=== PATIENT | female | born 1930 | race Caucasian/White ===

== ENCOUNTER 2017-03-27 14:21 | Emergency (ER) | payer MEDICARE, OTHER ==
[~2017-03-27] VITALS: Ht 154.9 cm; Wt 60.0 kg
[2017-03-27 14:23] VITALS: BP 154/70; PULSE 60; RESP 12; TEMP 98.1; O2SAT 99
--- NOTE | 2017-03-27 14:32 | PD ---
Physical Exam Date Seen by Provider: Mar 27, 2017 Time Seen by Provider: 14:30 Narrative Pt is an 86 y/o female presenting for evaluation of left knee pain after a mechanical fall this morning. Pt denies any dizziness, CP prior to the fall. she is on Eliquis. Pain reported as a 2/10. Swelling to left knee. Awaiting bed placement. Data Data Last Documented VS Vital Signs Date Time Temp Pulse Resp B/P Pulse Ox O2 Delivery O2 Flow Rate FiO2 03/27/17 14:23 98.1 60 12 154/70 99 MDM Supervised Visit with CALISTA: Marce De Jesus Mar 27, 2017 14:32
--- NOTE | 2017-03-27 15:02 | RADRPT ---
EXAM DATE/TIME: 03/27/2017 14:42 [facility] COMPARISON: No previous studies available for comparison. INDICATIONS : Left knee pain. Fall. MEDICAL HISTORY : None. SURGICAL HISTORY : None. ENCOUNTER: Initial ACUITY: 1 day PAIN SCORE: 9/10 LOCATION: Left knee FINDINGS: Four view examination of the left knee demonstrates marked prepatellar soft tissue swelling. Bony str uctures are intact without evidence of acute fracture or dislocation. There is no significant arthrop athy. CONCLUSION: Prepatellar soft tissue swelling and possible hematoma. No evidence of acute fracture or significant arthropathy. Sonny Angeles MD on March 27, 2017 at 14:59 Board Certified Radiologist. This report was verified electronically.
[2017-03-27] MEDS ORDERED: ROSU10 PO (17:23)
[2017-03-27] MEDS ORDERED: APIX5TAB PO (17:23)
[2017-03-27] MEDS ORDERED: CARV3.12 PO (17:23)
--- NOTE | 2017-03-27 17:25 | PD ---
HPI Chief Complaint: Injury Time Seen by Provider: 17:03 Travel History International Travel<30 days: No Contact w/Intl Traveler<30days: No Traveled to known affect area: No History of Present Illness HPI 86yo F with PMH of TIA, afib on eliquis presents to the ED with c/o left knee pain after mechanical fall today. States she was grabbing something from the counter and lose balance and fell on both knees. However, only the left knee is swollen and hurts. Pt denies any dizziness, chest pain, sob, n/v, abdominal pain, focal weakness or numbness. Denies any head trauma. PFSH Past Medical History Hx Anticoagulant Therapy: Yes (ELIQUIS) Social History Tobacco Use: No Allergies-Medications (Allergen,Severity, Reaction): Coded Allergies: Percocet (Verified Adverse Reaction, Severe, Nausea/Vomiting, 03/27/17) Darvon (Verified Adverse Reaction, Unknown, Nausea/Vomiting, 03/27/17) Demerol (Verified Adverse Reaction, Unknown, Nausea/Vomiting, 03/27/17) Latex (Verified Adverse Reaction, Unknown, Rash, 03/27/17) Valium (Verified Adverse Reaction, Unknown, Nausea/Vomiting, 03/27/17) Reported Meds & Prescriptions Reported Meds & Active Scripts Active Tylenol (Acetaminophen) 325 Mg Tab 650 Mg PO Q6H PRN Reported Janumet (Sitagliptin-Metformin) 50-1,000 Mg Tab 1 Tab PO BID Furosemide 20 Mg Tab 20 Mg PO DAILY Carvedilol 3.125 Mg Tab 3.125 Mg PO BID Eliquis (Apixaban) 5 Mg Tab 5 Mg PO BID Crestor (Rosuvastatin Calcium) 10 Mg Tab 10 Mg PO DAILY Review of Systems Except as stated in HPI: all other systems reviewed are Neg Physical Exam Narrative GENERAL: 86yo F not in distress. SKIN: Focused skin assessment warm/dry. HEAD: Atraumatic. Normocephalic. EYES: Pupils equal and round at 3mm bilaterally. EOMI. No scleral icterus. No injection or drainage. ENT: No nasal bleeding or discharge. Mucous membranes pink and moist. NECK: Trachea midline. No JVD. CARDIOVASCULAR: Regular rate and rhythm. No murmur appreciated. RESPIRATORY: No accessory muscle use. Clear to auscultation. Breath sounds equal bilaterally. GASTROINTESTINAL: Abdomen soft, non-tender, nondistended. MUSCULOSKELETAL: Left knee: +Edema. +Ecchymoses. Not hot to touch. Decreased ROM due to pain. Distal pulses intact. No ttp bilateral scaphoid bone. FROM in bilateral hands. NEUROLOGICAL: Awake and alert. No obvious cranial nerve deficits. Motor grossly within normal limits. Normal speech. PSYCHIATRIC: Appropriate mood and affect; insight and judgment normal. Data Data Last Documented VS Vital Signs Date Time Temp Pulse Resp B/P Pulse Ox O2 Delivery O2 Flow Rate FiO2 03/27/17 14:23 98.1 60 12 154/70 99 Orders Knee, Complete (4vws) (03/27/17 ) Acetaminophen (Tylenol) (03/27/17 17:30) Electrocardiogram (03/27/17 ) MDM Medical Decision Making Medical Screen Exam Complete: Yes Emergency Medical Condition: Yes Interpretation(s) EKG: Paced rhythm at 60bpm. No concordance. Differential Diagnosis Contusion vs. hemarthrosis vs. hematoma vs. fracture Narrative Course 86yo F with left knee pain after mechanical fall. Denies any head trauma. Pt able to ambulate after the fall. Pt given acetaminophen which helped with the pain. Xray left knee showed soft tissue swelling and possible hematoma. No evidence of acute fracture or significant arthropathy. Kush bandage applied for compression. Ice pack applied to reduce swelling. Recommend outpatient follow up if symptoms worsen or persist. Return precautions given. Diagnosis Primary Impression: Left knee pain Qualified Code: M25.562 - Acute pain of left knee Patient Instructions: General Instructions Departure Forms: Tests/Procedures Additional Instructions: Please follow up with your primary care physician in 3-7 days. Return to the ED if symptoms worsen. Med/Other Pt SpecificInfo: Prescription(s) given Scripts Acetaminophen (Tylenol)325 Mg Mpc908 Mg PO Q6H PRN (PAIN SCALE 1 TO 4) #20 TAB Ref 0 Prov:PeraltaKristine 03/27/17 Disposition: 01 DISCHARGE HOME Condition: Stable PeraltaKristine DO Mar 27, 2017 17:24
[2017-03-27] MEDS ORDERED: FURO20TA PO (17:26)
[2017-03-27] MEDS ORDERED: JANU50TA8 PO (17:26)
[2017-03-27] MEDS ORDERED: ACETAMINOPHEN 325 MG TAB PO ONE (17:30)
[2017-03-27] MEDS ORDERED: TYLE325T PO (18:04)
--- NOTE | 2017-03-28 17:04 | EKG ---
Date Performed: 03/27/2017 Time Performed: 17:34:34 PTAGE: 86 years EKG: ELECTRONIC VENTRICULAR PACEMAKER ABNORMAL RHYTHM ECG NO PREVIOUS TRACING DOCTOR: Vivek Pizarro Interpretating Date/Time 03/28/2017 17:03:38
== END 2017-03-27 18:23 | disposition home or self-care (01) ==
LOC: NEPD 14:21
DX: M25.562 Pain in left knee (principal); M79.89 Other specified soft tissue disorders; I48.91 Unspecified atrial fibrillation; R94.31 Abnormal electrocardiogram [ECG] [EKG]; Z86.73 Personal history of transient ischemic attack (TIA), and cerebral infarction without residual deficits; Z79.899 Other long term (current) drug therapy; Z88.5 Allergy status to narcotic agent; Z88.8 Allergy status to other drugs, medicaments and biological substances
CPT/HCPCS: 73564; 93005